=== PATIENT | female | born 1970 | race Two or more races ===

== ENCOUNTER 2017-03-04 21:19 | Emergency (ER) | payer OTHER | END 2017-03-04 23:30 | disposition home or self-care (01) | LOC: FTE 21:19 | DX: S67.192A Crushing injury of right middle finger, initial encounter (principal); S67.193A Crushing injury of left middle finger, initial encounter; W23.1XXA Caught, crushed, jammed, or pinched between stationary objects, initial encounter; Y92.9 Unspecified place or not applicable | CPT/HCPCS: 73140; 99283-25 ==